=== PATIENT | female | born 1935 | race Caucasian/White ===

== ENCOUNTER 2024-05-03 20:09 | Inpatient (IN) ==
--- NOTE | 2024-05-03 20:39 | Emergency Department Note ---
Impression & Plan Fall, Acute CVA (cerebrovascular accident), HTN (hypertension) ED Provider Note Provider: Carlos Edmonds MD CHIEF COMPLAINT: Fall, fatigue HISTORY OF PRESENT ILLNESS: Patient is a 88-year-old female otherwise healthy for her and daughter's report presenting here today after slide to the floor yesterday while putting on a sock. No significant trauma or head injury. Today staff reported the patient may be slipped and fell in the shower. He had little bit of neck and jaw pain this morning but took some aspirin. Does not only take medications or blood thinners. Patient denies any pain complaint. States she has not any headache, dizziness, visual change, neck pain, chest pain, shortness of breath, or abdominal pain. Was ambulatory in the car with family to come here and they do report however that she seemed maybe a little more fatigued last day or 2. Did have a full day on Thursday where she was out with family looking at close. Patient herself denies any confusion and family states she is at her baseline. Did have a recent checkup with the facility physician with good remarks reported by family. Has been noted to be slightly hypertensive recently. PAST MEDICAL HISTORY: As noted above MEDICATIONS: None SOCIAL HISTORY: Lives at personal care PHYSICAL EXAM: GENERAL: alert and oriented in no acute distress on stretcher Head: normocephalic and atraumatic EYES: No injection, discharge or icterus. PERRL, EOMI. NECK: Trachea midline. Supple without midline cervical tenderness. No crepitus or neck swelling appreciable. ENT: Mucous membranes pink and moist. LUNGS: Airway patent. No retractions. Breath sounds clear with good air entry bilaterally. HEART: Regular rate and rhythm. No chest wall tenderness ABDOMEN: Soft and non-tender, without guarding or rebound. BACK: No midline tenderness of the entire spine, no SI joint tenderness. No bilateral flank tenderness. SKIN: Acyanotic, warm, dry, without rashes EXTREMITIES: Without swelling, tenderness or deformity good range of motion of the extremities without evidence of compartment syndrome in the arms or legs NEUROLOGICAL: No focal deficits. Little bit circumferential with speech but no clear aphasia. No facial droop or slurred speech. Normal strength and tone in the extremities. Sensation to gross touch normal. Ambulatory. EK bpm sinus rhythm with sinus arrhythmia. Little bit of baseline artifact. No clear acute ST segment elevation or depression with QTc of 418. CONTINUOUS CARDIAC MONITORING: was ordered and showed a heart rate of 60s to 70s bpm in sinus rhythm with sinus arrhythmia GCS 15. Patient's laboratory studies and imaging reviewed. Differential includes traumatic injury, infection, dehydration, metabolic abnormality, hypo/hyperglycemia, electrolyte disturbance, anemia, hypoxia, cardiac sources, intracerebral event, toxicologic, neurologic, as well as other pathologies. IMPRESSION/MEDICAL DECISION MAKING: Patient yesterday very small slip to the floor and possibly a slight fall in the shower although patient states it was minimal. Not on high risk anticoagulant. Did instantly have an aspirin for bit of jaw pain earlier today but denies any jaw pain now. States she feels fine. Family states she seems maybe just a little more fatigued than normal but did have a full day on Thursday. Given this basic blood was obtained with her consent as well as a CT of the head and cervical spine. Chest x-ray obtained. EKG obtained. Does not seem to be an extremis and not hypoxic here. Is noted be hypertensive. Not on medications. Do not see evidence of a second traumatic injury, compartment syndrome, or injury to the extremities. Do not believe we need full trauma cunningham scans. Blood work without significant leukocytosis or anemia. No sick electrolyte advised as acute renal dysfunction. Normal CK. Normal LFTs. EKG without significant abnormality. Urinalysis negative for signs of infection. Chest x- ray completed as well as CT of the head and cervical spine. Chest x-ray per my review and interpretation without evidence of pneumonia, pneumothorax, or free air. Some cardiomegaly noted. Does not seem to sustained a significant injury traumatically. CT does question occipital infarct. No history of stroke reported. Does continue to be somewhat hypertensive here and does not a history of this. Unclear that this is new and given the CT findings likely more subacute, but discussed with patient and family this finding. Discussed coming in for further stroke workup and to monitor the hypertension. Took 2 aspirin earlier this evening so will not give additional at this time. Will complete CT angiograms of the head and neck but low suspicion for LVO at this time. Discussed with the hospitalist team. DIAGNOSIS: Fall, subacute CVA, hypertension DISPOSITION: Further evaluation by the hospitalist team. Past Med/Surg History Problem List (Updated 05/03/24 @ 23:30 by Carlos T Kendal, M.D.) HTN (hypertension) (Acute) Acute CVA (cerebrovascular accident) (Acute) Fall (Acute) Social History Smoking Status: Never smoker Feels Safe at Home: Yes Allergies Allergies Allergy/AdvReac Type Severity Reaction Status Date / Time amoxicillin Allergy Unknown ON [place] Verified 05/03/24 20:54 [place] [facility] L[facility] Sulfa (Sulfonamide Allergy Unknown ON [place] Verified 05/03/24 20:54 Antibiotics) [facility] MED LIST Home Meds Home Medications Medication Instructions Recorded Confirmed acetaminophen 325 mg tablet 650 mg PO Q4H PRN PAIN/FEVER 05/03/24 05/03/24 (Tylenol) ascorbic acid (vitamin C) 500 mg 500 mg PO DAILY 05/03/24 05/03/24 tablet (Vitamin C) aspirin 325 mg tablet 650 mg PO Q6H PRN Pain 05/03/24 05/03/24 cholecalciferol (vitamin D3) 50 50 mcg PO DAILY 05/03/24 05/03/24 mcg (2,000 unit) capsule (Vitamin D3) guaifenesin 600 mg tablet, 600 - 1,200 mg PO Q12H PRN 05/03/24 05/03/24 extended release 12 hr (Mucinex) Congestion herbal drugs 2 tab PO BID 05/03/24 05/03/24 multivitamin 3 tab PO BID 05/03/24 05/03/24 nystatin 100,000 unit/gram topical 1 applic topical QID PRN NEEDED 05/03/24 05/03/24 powder Results & Data (ED) Vital Signs Vital Signs - 24 hr 05/03/24 20:11 05/03/24 20:48 05/03/24 20:53 Temperature 36.5 C Temperature Source Oral Pulse Rate 73 63 Pulse Rate [Apical] 78 Respiratory Rate 18 16 Respiratory Effort / Characteristics Non-Labored Spontaneous Respiratory Depth Normal Respiratory Pattern Regular Blood Pressure 196/117 H Blood Pressure [Left Arm] 184/105 H Blood Pressure Mean 143 Blood Pressure Mean [Left Arm] 131 Pulse Oximetry 94 94 Oxygen Delivery Method Room Air Room Air Sepsis Recent Fever Within 48 Hours No Sepsis New/Unexplained Change in Mental Status No Sepsis Action Taken by Nursing No Action Required 05/03/24 21:36 05/03/24 22:00 05/03/24 22:30 Temperature Temperature Source Pulse Rate 70 68 67 Pulse Rate [Apical] Respiratory Rate 16 19 15 Respiratory Effort / Characteristics Respiratory Depth Respiratory Pattern Blood Pressure 174/83 H 158/81 H 157/83 H Blood Pressure [Left Arm] Blood Pressure Mean 113 106 107 Blood Pressure Mean [Left Arm] Pulse Oximetry 98 97 97 Oxygen Delivery Method Room Air Room Air Room Air Sepsis Recent Fever Within 48 Hours Sepsis New/Unexplained Change in Mental Status Sepsis Action Taken by Nursing 05/03/24 23:06 Temperature Temperature Source Pulse Rate 64 Pulse Rate [Apical] Respiratory Rate 16 Respiratory Effort / Characteristics Respiratory Depth Respiratory Pattern Blood Pressure 153/97 H Blood Pressure [Left Arm] Blood Pressure Mean 115 Blood Pressure Mean [Left Arm] Pulse Oximetry 97 Oxygen Delivery Method Room Air Sepsis Recent Fever Within 48 Hours Sepsis New/Unexplained Change in Mental Status Sepsis Action Taken by Nursing Laboratory Data 05/03/24 20:50 05/03/24 20:50 Lab Results 05/03/24 05/03/24 Range/Units 20:50 22:15 WBC 6.83 (4.8-10.8) K/ul RBC 4.72 (4.20-5.40) M/uL Hgb 13.7 (12.0-16.0) g/dl Hct 40.6 (37.0-47.0) % MCV 86.0 (80.0-100.0) fL MCH 29.0 (25.0-34.0) pg MCHC 33.7 (32.0-36.0) g/dL RDW Std Deviation 41.6 (36.4-46.3) fL RDW Coeff of Carmen 13.2 (11.5-14.5) % Plt Count 146 (130-400) K/uL MPV 12.1 (9.4-12.4) fL Immature Gran % (Auto) 0.3 % Neut % (Auto) 78.1 % Lymph % (Auto) 9.8 % [place] % (Auto) 11.4 % Eos % (Auto) 0.3 % Baso % (Auto) 0.1 % Neut # (Auto) 5.33 (1.40-6.50) K/uL Lymph # (Auto) 0.67 L (1.20-3.40) K/uL [place] # (Auto) 0.78 H (0.11-0.59) K/uL Eos # (Auto) 0.02 (0.00-0.50) K/uL Baso # (Auto) 0.01 (0.00-0.20) K/uL Immature Gran # (Auto) 0.02 (0.01-0.20) K/uL Sodium 136 (136-145) mmol/L Potassium 3.7 (3.5-5.1) mmol/L Chloride 105 (98-107) mmol/L Carbon Dioxide 23 (21-32) mmol/L Anion Gap 8 (3-11) BUN 25 H (6-23) mg/dl Creatinine 0.92 (0.6-1.2) mg/dl Est Cr Clr Drug Dosing 40.7 ml/min eGFR 59.52 BUN/Creatinine Ratio 27.2 H (10-20) Glucose 104 H (70-99(Fasting)) mg/dl Calcium 8.6 (8.6-10.3) mg/dl Total Bilirubin 0.5 (0.2-1.0) mg/dl AST 17 (13-39) U/L ALT 9 (7-52) U/L Alkaline Phosphatase 70 (34-104) U/L Total Creatine Kinase 116 (26-192) U/L Total Protein 6.6 (6.0-8.3) gm/dl Albumin 3.8 (3.4-5.0) gm/dl Globulin 2.8 (2.5-4.0) gm/dl Albumin/Globulin Ratio 1.4 (0.9-2) Urine Color Yellow Urine Appearance Clear (Clear) Urine pH 6.0 (4.5-7.5) Ur Specific [place] 1.003 (1.000-1.030) Urine Protein Negative (Negative) Urine Glucose (UA) Negative (Negative) Urine Ketones Negative (Negative) Urine Blood Negative (Negative) Urine Nitrite Negative (Negative) Urine Bilirubin Negative (Negative) Urine Urobilinogen Negative (Negative) Ur Leukocyte Esterase Negative (Negative) Administered Medications Discontinued Medications Ioversol (Optiray 320 125ml) 125 ml IV ONCE ONE Stop: 05/04/24 00:01 Last Admin: 05/04/24 00:00 Dose: 118 ml Documented By: SILAS Imaging Data Radiologist's Impression: Cervical Spine CT 05/03/24 20:34 Exam(s): CT C SPINE EXAM: CT Cervical Spine Without Intravenous Contrast CLINICAL HISTORY: fall. TECHNIQUE: Axial computed tomography images of the cervical spine without intravenous contrast. CTDI is 25.19 mGy and DLP is 494.61 mGy-cm. Automated exposure control was utilized for the study. A dose lowering technique was utilized adhering to the principles of ALARA. COMPARISON: No relevant prior studies available. FINDINGS: Vertebrae: The vertebral bodies are intact without acute osseous traumatic injury. 3 mm anterolisthesis involving C7 on T1. 1-2 mm anterolisthesis of T1 on T2. The facet joints are well aligned without subluxation or dislocation. The pedicles, transverse processes and spinous processes are intact. Diffuse facet hypertrophic arthropathy noted bilaterally. Incidental ankylosis of the bilateral facets from C4- C6. Discs/spinal canal/neural foramina: Degenerative disc ankylosis at C4- 5 and C5-6. Multilevel disc spondylosis with narrowing and marginal hypertrophic osteophyte changes. No significant osseous central canal stenosis. Soft tissues: Unremarkable. Lung apices: The included lung apices demonstrate no evidence for acute traumatic injury. IMPRESSION: No acute osseous traumatic injury or significant abnormal alignment involving the cervical spine. Incidental degenerative changes with ankylosis from C4-C6 anteriorly and posteriorly. Electronically signed by: Bay Sargent MD 05/03/24 23:19 PM Chest X-Ray 05/03/24 20:34 Exam(s): XR CXR 1 VIEW EXAM: XR Chest, 1 View CLINICAL HISTORY: fall. TECHNIQUE: Frontal view of the chest. COMPARISON: No relevant prior studies available. FINDINGS: Lungs: Shallow inspiration. No definite pulmonary contusive injury or focal consolidation. Pleural space: Unremarkable. No pneumothorax. No large pleural effusion. Heart: The cardiac silhouette is presumed accentuated by portable technique and poor inspiratory effort. Mediastinum: No definite evidence for mediastinal widening, accounting for obliquity. No tracheal deviation. Bones/joints: No definite acute osseous abnormality, accounting for limitations. IMPRESSION: Accounting for limitations with obliquity, there is no definite evidence for significant acute traumatic injury to the chest/thorax. Electronically signed by: Bay Sargent MD 05/03/24 23:[address] 05/03/24 20:34 CR Exam(s): CT HEAD Without Contrast EXAM: CT Head Without Intravenous Contrast CLINICAL HISTORY: fall. TECHNIQUE: Axial computed tomography images of the head/brain without intravenous contrast. CTDI is 55.17 mGy and DLP is 899.15 mGy-cm. Automated exposure control was utilized for the study. A dose lowering technique was utilized adhering to the principles of ALARA. COMPARISON: No relevant prior studies available. FINDINGS: Brain: No intracranial hemorrhage. No significant mass-effect. There is a subtle wedge-shaped hypodense area involving the left parieto- occipital region with loss of the miller-white matter differentiation. Underlying parenchymal involutional changes with prominence of the cerebral sulci and sylvian ureters. Mild periventricular deep white matter hypodense changes noted. Ventricles: Unremarkable. No ventriculomegaly. Bones/joints: Unremarkable. No acute fracture. Soft tissues: No significant overlying acute traumatic soft tissue abnormality. No radiopaque foreign body. Sinuses: Unremarkable as visualized. No acute sinusitis. Mastoid air cells: Unremarkable as visualized. No mastoid effusion. IMPRESSION: There is a subtle wedge-shaped hypodense area involving the left parieto-occipital region with loss of the miller-white matter differentiation. An evolving ischemic process is not excluded. MRI with diffusion may provide additional information at this region, as clinically appropriate. No significant mass-effect or midline shift. No acute intracranial hemorrhage or skull fracture. Communications: Verify Receipt Electronically signed by: Bay Sargent MD 05/03/24 23:13 PM Discharge Plan Visit Data Chief Complaint: Head Injury, Minor Stated Complaint: POSSIBLE FALL, HIT HEAD ED Provider: Carlos Edmonds Discharge Problem: Fall, Acute CVA (cerebrovascular accident), HTN (hypertension) Patient Disposition: Admitted As Inpatient Forms Stand Alone Forms: [facility] Prescriptions Prescriptions: No Action multivitamin Tablet 3 tab PO BID acetaminophen [Tylenol] 325 mg Tablet 650 mg PO Q4H PRN (Reason: PAIN/FEVER) aspirin 325 mg Tablet 650 mg PO Q6H MDD 12 TABLETS/24 HOURS PRN (Reason: Pain) ascorbic acid (vitamin C) [Vitamin C] 500 mg Tablet 500 mg PO DAILY nystatin 100,000 unit/gram Powder 1 applic TOPICAL QID PRN (Reason: NEEDED) Herbal Laxative Tablet 2 tab PO BID cholecalciferol (vitamin D3) [Vitamin D3] 50 mcg (2,000 unit) Capsule 50 mcg PO DAILY guaifenesin [Mucinex] 600 mg Tablet Extended Release 12hr 600 - 1,200 mg PO Q12H PRN (Reason: Congestion) [facility]errals [facility] Discharge Problem: Fall Qualifiers: Encounter type: initial encounter Qualified Code(s): W19.XXXA - Unspecified fall, initial encounter
[2024-05-03 21:26] LABS: Albumin Globulin Ratio 1.4 (0.9-2); Albumin Level 3.8 gm/dl (3.4-5.0); BUN Creatinine Ratio 27.2 (10-20); Bilirubin,Total 0.5 mg/dl (0.2-1.0); Calcium 8.6 mg/dl (8.6-10.3); Creatinine Clr Calc Pharmacy 40.7 ml/min; Globulin 2.8 gm/dl (2.5-4.0); Potassium 3.7 mmol/L (3.5-5.1); Total Protein 6.6 gm/dl (6.0-8.3)
[2024-05-03 21:40] LABS: Basophils # (auto) 0.01 K/uL (0.00-0.20); Basophils % (auto) 0.1 %; Eosinophils # (auto) 0.02 K/uL (0.00-0.50); Eosinophils % (auto) 0.3 %; Hematocrit (blood only) 40.6 % (37.0-47.0); Hemoglobin 13.7 g/dl (12.0-16.0); Immature Granulocytes # (auto) 0.02 K/uL (0.01-0.20); Immature Granulocytes % (auto) 0.3 %; Lymphocytes # (auto) 0.67 K/uL (1.20-3.40); Lymphocytes % (auto) 9.8 %; Mean Corpuscular Hgb Conc 33.7 g/dL (32.0-36.0); Mean Platelet Volume 12.1 fL (9.4-12.4); Monocytes # (auto) 0.78 K/uL (0.11-0.59); Monocytes % (auto) 11.4 %; Neutrophils # (auto) 5.33 K/uL (1.40-6.50); Neutrophils % (auto) 78.1 %; Platelet Count 146 K/uL (130-400); RDW Coefficient of Variation 13.2 % (11.5-14.5); RDW Standard Deviation 41.6 fL (36.4-46.3); Red Blood Count 4.72 M/uL (4.20-5.40); White Blood Count 6.83 K/ul (4.8-10.8)
[2024-05-03 22:24] LABS: Appearance Urine Clear (Clear); Bilirubin Urine Negative (Negative); Blood Urine Negative (Negative); Color Urine Yellow; Glucose Urine UA Negative (Negative); Ketones Urine Negative (Negative); Leukocyte Esterase Urine Negative (Negative); Nitrite Urine Negative (Negative); Protein Urine Negative (Negative); Specific Gravity Urine 1.003 (1.000-1.030); Urobilinogen Urine Negative (Negative)
--- NOTE | 2024-05-03 23:14 | CT Scan Report ---
Exam(s): CT HEAD Without Contrast EXAM: CT Head Without Intravenous Contrast CLINICAL HISTORY: fall. TECHNIQUE: Axial computed tomography images of the head/brain without intravenous contrast. CTDI is 55.17 mGy and DLP is 899.15 mGy-cm. Automated exposure control was utilized for the study. A dose lowering technique was utilized adhering to the principles of ALARA. COMPARISON: No relevant prior studies available. FINDINGS: Brain: No intracranial hemorrhage. No significant mass-effect. There is a subtle wedge-shaped hypodense area involving the left parieto- occipital region with loss of the miller-white matter differentiation. Underlying parenchymal involutional changes with prominence of the cerebral sulci and sylvian ureters. Mild periventricular deep white matter hypodense changes noted. Ventricles: Unremarkable. No ventriculomegaly. Bones/joints: Unremarkable. No acute fracture. Soft tissues: No significant overlying acute traumatic soft tissue abnormality. No radiopaque foreign body. Sinuses: Unremarkable as visualized. No acute sinusitis. Mastoid air cells: Unremarkable as visualized. No mastoid effusion. IMPRESSION: There is a subtle wedge-shaped hypodense area involving the left parieto-occipital region with loss of the miller-white matter differentiation. An evolving ischemic process is not excluded. MRI with diffusion may provide additional information at this region, as clinically appropriate. No significant mass-effect or midline shift. No acute intracranial hemorrhage or skull fracture. Communications: Verify Receipt Electronically signed by: Bay Sargent MD 05/03/24 23:13 PM
--- NOTE | 2024-05-03 23:20 | CT Scan Report ---
Exam(s): CT C SPINE EXAM: CT Cervical Spine Without Intravenous Contrast CLINICAL HISTORY: fall. TECHNIQUE: Axial computed tomography images of the cervical spine without intravenous contrast. CTDI is 25.19 mGy and DLP is 494.61 mGy-cm. Automated exposure control was utilized for the study. A dose lowering technique was utilized adhering to the principles of ALARA. COMPARISON: No relevant prior studies available. FINDINGS: Vertebrae: The vertebral bodies are intact without acute osseous traumatic injury. 3 mm anterolisthesis involving C7 on T1. 1-2 mm anterolisthesis of T1 on T2. The facet joints are well aligned without subluxation or dislocation. The pedicles, transverse processes and spinous processes are intact. Diffuse facet hypertrophic arthropathy noted bilaterally. Incidental ankylosis of the bilateral facets from C4- C6. Discs/spinal canal/neural foramina: Degenerative disc ankylosis at C4- 5 and C5-6. Multilevel disc spondylosis with narrowing and marginal hypertrophic osteophyte changes. No significant osseous central canal stenosis. Soft tissues: Unremarkable. Lung apices: The included lung apices demonstrate no evidence for acute traumatic injury. IMPRESSION: No acute osseous traumatic injury or significant abnormal alignment involving the cervical spine. Incidental degenerative changes with ankylosis from C4-C6 anteriorly and posteriorly. Electronically signed by: Bay Sargent MD 05/03/24 23:19 PM
--- NOTE | 2024-05-03 23:23 | XRay Report ---
Exam(s): XR CXR 1 VIEW EXAM: XR Chest, 1 View CLINICAL HISTORY: fall. TECHNIQUE: Frontal view of the chest. COMPARISON: No relevant prior studies available. FINDINGS: Lungs: Shallow inspiration. No definite pulmonary contusive injury or focal consolidation. Pleural space: Unremarkable. No pneumothorax. No large pleural effusion. Heart: The cardiac silhouette is presumed accentuated by portable technique and poor inspiratory effort. Mediastinum: No definite evidence for mediastinal widening, accounting for obliquity. No tracheal deviation. Bones/joints: No definite acute osseous abnormality, accounting for limitations. IMPRESSION: Accounting for limitations with obliquity, there is no definite evidence for significant acute traumatic injury to the chest/thorax. Electronically signed by: Bay Sargent MD 05/03/24 23:21 PM
[2024-05-04] MEDS: OPTIRAY 320 125ml IV ONE
--- NOTE | 2024-05-04 00:36 | CT Scan Report ---
EXAM: CT angio neck with con CLINICAL HISTORY: weak, cva on CTH TECHNIQUE: Contrast enhanced thin slice CT angiography scan of the carotid vessels was performed with intravenous contrast. Angiographic images were processed, 3D MIP images were acquired for interpretation.Contiguous axial images were obtained. Reformatted coronal and sagittal images were also reviewed. If IV contrast material had not been administered, the likelihood of detecting abnormalities relevant to the patient's condition would have been substantially decreased. CT scan was performed according to ALARA (as low as reasonably achievable). COMPARISON: none FINDINGS: Atherosclerotic wall calcification of bilateral carotid bulbs. No significant luminal narrowing. Included great vessels of the aortic arch are grossly unremarkable. Common carotid artery, carotid Bulb, internal carotid artery , and origin of the external carotid artery are well opacified. Vertebral arteries are well opacified. Jugular veins are well opacified. Included lung apices are grossly unremarkable. Thyroid gland appears unremarkable. IMPRESSION: 1. Atherosclerotic wall calcification of bilateral carotid bulbs. No significant luminal narrowing. 2. No evidence of significant stenosis or aneurysm. No evidence of dissection. Electronically signed by Jamison Hilton 05-04-2024 12:36 AM
--- NOTE | 2024-05-04 00:42 | CT Scan Report ---
EXAM: CT angio head w con CLINICAL HISTORY: weak, cva on CTH TECHNIQUE: Contrast enhanced thin slice CT angiography scan of the cerebral vessels was performed with intravenous contrast. Angiographic images were processed, 3D MIP images were acquired for interpretation. Contiguous axial images were obtained. Reformatted coronal and sagittal images were also reviewed. If IV contrast material had not been administered, the likelihood of detecting abnormalities relevant to the patient's condition would have been substantially decreased. CT scan was performed according to ALARA (as low as reasonably achievable). COMPARISON: none FINDINGS: Bilateral internal carotid arteries show normal course, calibre and opacification in the canalicular and cavernous part. Their division into the anterior cerebral artery and middle cerebral artery is defined. A1, A2 and M1, M2 segments are normal on both the sides. Bilateral vertebral arteries are seen to unite the form the basilar artery in a normal fashion. Basilar artery shows normal course, caliber and opacification. Its division into the posterior cerebral arteries is defined. Bilateral P1 and P2 segments are normal. Visualized venous structures show normal opacification. No evidence of intracranial aneurysm or AV malformation is seen. IMPRESSION: 1.No evidence of stenosis or aneurysm. No evidence of dissection. Electronically signed by Jamison Hilton 05-04-2024 12:41 AM
--- NOTE | 2024-05-04 02:16 | History & Physical Report ---
Date of Service May 04, 2024 Assessment & Plan (1) Fall: Plan: 88-year-old female with no significant past medical history currently living [facility] was brought in because of falls. Patient seem to slipped from the bed last night. Today around 7 PM she fell in the shower and was brought to the hospital. CT scan showed subtle wedge-shaped hypodense area involving the left parieto-occipital region and evolving ischemic process not excluded. CTA head and neck no acute findings. Patient is very hard of hearing. Daughter and son-in-law are in the room who helped with H&P. Family says patient is very hard of hearing and also has some difficulty understanding. They are not sure whether she has dementia. Today seems she also complained neck and jaw pain and took some aspirin. Seems patient was ambulating in the car with the family to come here. Patient denies any headache. No runny nose or sore throat or cough. Denies chest pain. No difficulty swallowing. No shortness of breath. No abdominal pain. She is on depends because she micturates a lot. Normal bowel movements. Hemodynamics are okay. As per previous [facility] notes patient was on hydrochlorothiazide but currently seems no longer on it. Fall Once last night and today in shower at 7 PM Patient is very hard of hearing CT scan possible CVA. CTA head and neck no acute findings Patient already received aspirin today for neck and jaw pain Will place on aspirin 81 mg p.o. daily from a.m. Will do stroke workup with MRI scan, echo, neurochecks, PT OT Follow lipid profile and HbA1c levels Gentle fluids Permissive htn for now Neuroconsult in a.m. 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 History of Present Illness Chief Complaint: Status post fall, possible CVA Primary Care Provider: [facility] 88-year-old female with no significant past medical history currently living at [facility] was brought in because of falls. Patient seem to slipped from the bed last night. Today around 7 PM she fell in the shower and was brought to the hospital. CT scan showed subtle wedge-shaped hypodense area involving the left parieto-occipital region and evolving ischemic process not excluded. CTA head and neck no acute findings. Patient is very hard of hearing. Daughter and son-in-law are in the room who helped with H&P. Family says patient is very hard of hearing and also has some difficulty understanding. They are not sure whether she has dementia. Today seems she also complained neck and jaw pain and took some aspirin. Seems patient was ambulating in the car with the family to come here. Patient denies any headache. No runny nose or sore throat or cough. Denies chest pain. No difficulty swallowing. No shortness of breath. No abdominal pain. She is on depends because she micturates a lot. Normal bowel movements. Hemodynamics are okay. As per previous epic notes patient was on hydrochlorothiazide but currently seems no longer on it. Past medical history. As mentioned above. Past surgical history. Dilatation curettage. Tonsillectomy. Social history. No smoking. No alcohol. No drug use as per records. Family history. Mother had Parkinson's per records. Father had diabetes and COPD per records. Allergies Allergy/AdvReac Type Severity Reaction Status Date / Time amoxicillin Allergy Unknown ON EGEGIK Verified 05/03/24 20:54 [facility] L[facility] Sulfa (Sulfonamide Allergy Unknown ON EGEGIK Verified 05/03/24 20:54 Antibiotics) [facility] MED LIST Home Medications Medication Instructions Recorded Confirmed Type acetaminophen 325 mg tablet 650 mg PO Q4H PRN PAIN/FEVER 05/03/24 05/03/24 History (Tylenol) ascorbic acid (vitamin C) 500 mg 500 mg PO DAILY 05/03/24 05/03/24 History tablet (Vitamin C) aspirin 325 mg tablet 650 mg PO Q6H PRN Pain 05/03/24 05/03/24 History cholecalciferol (vitamin D3) 50 50 mcg PO DAILY 05/03/24 05/03/24 History mcg (2,000 unit) capsule (Vitamin D3) guaifenesin 600 mg tablet, 600 - 1,200 mg PO Q12H PRN 05/03/24 05/03/24 History extended release 12 hr (Mucinex) Congestion herbal drugs 2 tab PO BID 05/03/24 05/03/24 History multivitamin 3 tab PO BID 05/03/24 05/03/24 History nystatin 100,000 unit/gram topical 1 applic topical QID PRN NEEDED 05/03/24 05/03/24 History powder Past Med/Surg History Problem List (Updated 05/03/24 @ 23:30 by Carlos Edmonds M.D.) HTN (hypertension) (Acute) Acute CVA (cerebrovascular accident) (Acute) Fall (Acute) Social History Smoking Status: Unknown if ever smoked Hx Alcohol Use: No Hx Substance Use: No Preferred Language: Uzbek Communication Ability: Effective Mobile Ui Designer Required: No Current Living Situation: Personal Care Facility Feels Safe at Home: Yes Assistive Devices: Glasses Review of Systems Review of Systems: Other As per HPI. Very hard of hearing. Physical Exam Physical Exam: General-Not in distress. Head- atraumatic Eyes- PERRL, EOMI. ENT- oropharynx clear Neck- supple, no JVD. Lungs- clear to auscultation no wheezing or crackles Heart- regular rate and rhythm; no murmur, no gallop. Abdomen- normal bowel sounds, soft, nontender, no distension. Extremities- no pretibial edema, no erythema seen. Neuro- alert, and awake. Very hard of hearing. PERRL, EOMI; no facial palsy; no dysarthria; motor 3-4/5 bilaterally; co ordination of movements ok. Somewhat difficult to make her understand to perform neuro exam Results & Data Results & Data Vital Signs (Past 12 Hours) Vital Signs Temp Pulse Pulse Resp BP BP Pulse Ox 05/04/24 00:40 57 L 05/03/24 23:36 64 15 155/98 H 97 05/03/24 23:06 64 16 153/97 H 97 05/03/24 22:30 67 15 157/83 H 97 05/03/24 22:00 68 19 158/81 H 97 05/03/24 21:36 70 16 174/83 H 98 05/03/24 20:53 78 16 184/105 H 94 05/03/24 20:48 63 05/03/24 20:11 36.5 C 73 18 196/117 H 94 O2 Del Method 05/04/24 00:40 05/03/24 23:36 Room Air 05/03/24 23:06 Room Air 05/03/24 22:30 Room Air 05/03/24 22:00 Room Air 05/03/24 21:36 Room Air 05/03/24 20:53 Room Air 05/03/24 20:48 05/03/24 20:11 Room Air Diagnostic Findings Laboratory Results WBC 6.83 K/ul (4.8-10.8) 05/03/24 20:50 RBC 4.72 M/uL (4.20-5.40) 05/03/24 20:50 Hgb 13.7 g/dl (12.0-16.0) 05/03/24 20:50 Hct 40.6 % (37.0-47.0) 05/03/24 20:50 MCV 86.0 fL (80.0-100.0) 05/03/24 20:50 MCH 29.0 pg (25.0-34.0) 05/03/24 20:50 MCHC 33.7 g/dL (32.0-36.0) 05/03/24 20:50 RDW Std Deviation 41.6 fL (36.4-46.3) 05/03/24 20:50 RDW Coeff of Carmen 13.2 % (11.5-14.5) 05/03/24 20:50 Plt Count 146 K/uL (130-400) 05/03/24 20:50 MPV 12.1 fL (9.4-12.4) 05/03/24 20:50 Immature Gran % (Auto) 0.3 % 05/03/24 20:50 Neut % (Auto) 78.1 % 05/03/24 20:50 Lymph % (Auto) 9.8 % 05/03/24 20:50 Gage % (Auto) 11.4 % 05/03/24 20:50 Eos % (Auto) 0.3 % 05/03/24 20:50 Baso % (Auto) 0.1 % 05/03/24 20:50 Neut # (Auto) 5.33 K/uL (1.40-6.50) 05/03/24 20:50 Lymph # (Auto) 0.67 K/uL (1.20-3.40) L 05/03/24 20:50 Gage # (Auto) 0.78 K/uL (0.11-0.59) H 05/03/24 20:50 Eos # (Auto) 0.02 K/uL (0.00-0.50) 05/03/24 20:50 Baso # (Auto) 0.01 K/uL (0.00-0.20) 05/03/24 20:50 Immature Gran # (Auto) 0.02 K/uL (0.01-0.20) 05/03/24 20:50 Sodium 136 mmol/L (136-145) 05/03/24 20:50 Potassium 3.7 mmol/L (3.5-5.1) 05/03/24 20:50 Chloride 105 mmol/L (98-107) 05/03/24 20:50 Carbon Dioxide 23 mmol/L (21-32) 05/03/24 20:50 Anion Gap 8 (3-11) 05/03/24 20:50 BUN 25 mg/dl (6-23) H 05/03/24 20:50 Creatinine 0.92 mg/dl (0.6-1.2) 05/03/24 20:50 Est Cr Clr Drug Dosing 40.7 ml/min 05/03/24 20:50 eGFR 59.52 05/03/24 20:50 BUN/Creatinine Ratio 27.2 (10-20) H 05/03/24 20:50 Glucose 104 mg/dl (70-99(Fasting)) H 05/03/24 20:50 Calcium 8.6 mg/dl (8.6-10.3) 05/03/24 20:50 Total Bilirubin 0.5 mg/dl (0.2-1.0) 05/03/24 20:50 AST 17 U/L (13-39) 05/03/24 20:50 ALT 9 U/L (7-52) 05/03/24 20:50 Alkaline Phosphatase 70 U/L (34-104) 05/03/24 20:50 Total Creatine Kinase 116 U/L (26-192) 05/03/24 20:50 Total Protein 6.6 gm/dl (6.0-8.3) 05/03/24 20:50 Albumin 3.8 gm/dl (3.4-5.0) 05/03/24 20:50 Globulin 2.8 gm/dl (2.5-4.0) 05/03/24 20:50 Albumin/Globulin Ratio 1.4 (0.9-2) 05/03/24 20:50 Urine Color Yellow 05/03/24 22:15 Urine Appearance Clear (Clear) 05/03/24 22:15 Urine pH 6.0 (4.5-7.5) 05/03/24 22:15 Ur Specific Bigfoot 1.003 (1.000-1.030) 05/03/24 22:15 Urine Protein Negative (Negative) 05/03/24 22:15 Urine Glucose (UA) Negative (Negative) 05/03/24 22:15 Urine Ketones Negative (Negative) 05/03/24 22:15 Urine Blood Negative (Negative) 05/03/24 22:15 Urine Nitrite Negative (Negative) 05/03/24 22:15 Urine Bilirubin Negative (Negative) 05/03/24 22:15 Urine Urobilinogen Negative (Negative) 05/03/24 22:15 Ur Leukocyte Esterase Negative (Negative) 05/03/24 22:[address] 05/03/24 20:34 Exam(s): CT C SPINE EXAM: CT Cervical Spine Without Intravenous Contrast CLINICAL HISTORY: fall. TECHNIQUE: Axial computed tomography images of the cervical spine without intravenous contrast. CTDI is 25.19 mGy and DLP is 494.61 mGy-cm. Automated exposure control was utilized for the study. A dose lowering technique was utilized adhering to the principles of ALARA. COMPARISON: No relevant prior studies available. FINDINGS: Vertebrae: The vertebral bodies are intact without acute osseous traumatic injury. 3 mm anterolisthesis involving C7 on T1. 1-2 mm anterolisthesis of T1 on T2. The facet joints are well aligned without subluxation or dislocation. The pedicles, transverse processes and spinous processes are intact. Diffuse facet hypertrophic arthropathy noted bilaterally. Incidental ankylosis of the bilateral facets from C4- C6. Discs/spinal canal/neural foramina: Degenerative disc ankylosis at C4- 5 and C5-6. Multilevel disc spondylosis with narrowing and marginal hypertrophic osteophyte changes. No significant osseous central canal stenosis. Soft tissues: Unremarkable. Lung apices: The included lung apices demonstrate no evidence for acute traumatic injury. IMPRESSION: No acute osseous traumatic injury or significant abnormal alignment involving the cervical spine. Incidental degenerative changes with ankylosis from C4-C6 anteriorly and posteriorly. Electronically signed by: Bay Sargent MD 05/03/24 23:19 PM Chest X-Ray 05/03/24 20:34 Exam(s): XR CXR 1 VIEW EXAM: XR Chest, 1 View CLINICAL HISTORY: fall. TECHNIQUE: Frontal view of the chest. COMPARISON: No relevant prior studies available. FINDINGS: Lungs: Shallow inspiration. No definite pulmonary contusive injury or focal consolidation. Pleural space: Unremarkable. No pneumothorax. No large pleural effusion. Heart: The cardiac silhouette is presumed accentuated by portable technique and poor inspiratory effort. Mediastinum: No definite evidence for mediastinal widening, accounting for obliquity. No tracheal deviation. Bones/joints: No definite acute osseous abnormality, accounting for limitations. IMPRESSION: Accounting for limitations with obliquity, there is no definite evidence for significant acute traumatic injury to the chest/thorax. Electronically signed by: Bay Sargent MD 05/03/24 23:[address] 05/03/24 20:34 CR Exam(s): CT HEAD Without Contrast EXAM: CT Head Without Intravenous Contrast CLINICAL HISTORY: fall. TECHNIQUE: Axial computed tomography images of the head/brain without intravenous contrast. CTDI is 55.17 mGy and DLP is 899.15 mGy-cm. Automated exposure control was utilized for the study. A dose lowering technique was utilized adhering to the principles of ALARA. COMPARISON: No relevant prior studies available. FINDINGS: Brain: No intracranial hemorrhage. No significant mass-effect. There is a subtle wedge-shaped hypodense area involving the left parieto- occipital region with loss of the miller-white matter differentiation. Underlying parenchymal involutional changes with prominence of the cerebral sulci and sylvian ureters. Mild periventricular deep white matter hypodense changes noted. Ventricles: Unremarkable. No ventriculomegaly. Bones/joints: Unremarkable. No acute fracture. Soft tissues: No significant overlying acute traumatic soft tissue abnormality. No radiopaque foreign body. Sinuses: Unremarkable as visualized. No acute sinusitis. Mastoid air cells: Unremarkable as visualized. No mastoid effusion. IMPRESSION: There is a subtle wedge-shaped hypodense area involving the left parieto-occipital region with loss of the miller-white matter differentiation. An evolving ischemic process is not excluded. MRI with diffusion may provide additional information at this region, as clinically appropriate. No significant mass-effect or midline shift. No acute intracranial hemorrhage or skull fracture. Communications: Verify Receipt Electronically signed by: Bay Sargent MD 05/03/24 23:13 PM Head CTA 05/03/24 23:32 EXAM: CT angio head w con CLINICAL HISTORY: weak, cva on CTH TECHNIQUE: Contrast enhanced thin slice CT angiography scan of the cerebral vessels was performed with intravenous contrast. Angiographic images were processed, 3D MIP images were acquired for interpretation. Contiguous axial images were obtained. Reformatted coronal and sagittal images were also reviewed. If IV contrast material had not been administered, the likelihood of detecting abnormalities relevant to the patient's condition would have been substantially decreased. CT scan was performed according to ALARA (as low as reasonably achievable). COMPARISON: none FINDINGS: Bilateral internal carotid arteries show normal course, calibre and opacification in the canalicular and cavernous part. Their division into the anterior cerebral artery and middle cerebral artery is defined. A1, A2 and M1, M2 segments are normal on both the sides. Bilateral vertebral arteries are seen to unite the form the basilar artery in a normal fashion. Basilar artery shows normal course, caliber and opacification. Its division into the posterior cerebral arteries is defined. Bilateral P1 and P2 segments are normal. Visualized venous structures show normal opacification. No evidence of intracranial aneurysm or AV malformation is seen. IMPRESSION: 1.No evidence of stenosis or aneurysm. No evidence of dissection. Electronically signed by Jamison Hilton 05-04-2024 12:41 AM Neck CTA 05/03/24 23:32 EXAM: CT angio neck with con CLINICAL HISTORY: weak, cva on CTH TECHNIQUE: Contrast enhanced thin slice CT angiography scan of the carotid vessels was performed with intravenous contrast. Angiographic images were processed, 3D MIP images were acquired for interpretation.Contiguous axial images were obtained. Reformatted coronal and sagittal images were also reviewed. If IV contrast material had not been administered, the likelihood of detecting abnormalities relevant to the patient's condition would have been substantially decreased. CT scan was performed according to ALARA (as low as reasonably achievable). COMPARISON: none FINDINGS: Atherosclerotic wall calcification of bilateral carotid bulbs. No significant luminal narrowing. Included great vessels of the aortic arch are grossly unremarkable. Common carotid artery, carotid Bulb, internal carotid artery , and origin of the external carotid artery are well opacified. Vertebral arteries are well opacified. Jugular veins are well opacified. Included lung apices are grossly unremarkable. Thyroid gland appears unremarkable. IMPRESSION: 1. Atherosclerotic wall calcification of bilateral carotid bulbs. No significant luminal narrowing. 2. No evidence of significant stenosis or aneurysm. No evidence of dissection. Electronically signed by Jamison Hilton 05-04-2024 12:36 AM ECG Additional Comments: ECG normal sinus rhythm with sinus arrhythmia with rate of 68. QTc 418. Code Status & VTE Plan VTE Prophylaxis Plan VTE Prophylaxis will be ordered: Yes (1) Fall Encounter type: initial encounter Qualified Code(s): W19.XXXA - Unspecified fall, initial encounter
[2024-05-04] MEDS ORDERED: PHARMACIST DISCHARGE MED REC CONSULT PRN (02:38)
[2024-05-04] MEDS ORDERED: POLYETHYLENE (MIRALAX) 17 GM PACK PO PRN (02:38)
[2024-05-04] MEDS ORDERED: NITROGLYCERIN SL 0.4 MG/TAB TAB SL PRN (02:38)
[2024-05-04] MEDS ORDERED: ACETAMINOPHEN 325 MG TAB PO PRN (02:38)
[2024-05-04 05:11] LABS: Basophils # (auto) 0.01 K/uL (0.00-0.20); Basophils % (auto) 0.2 %; Eosinophils # (auto) 0.06 K/uL (0.00-0.50); Eosinophils % (auto) 1.3 %; Hematocrit (blood only) 38.4 % (37.0-47.0); Immature Granulocytes # (auto) 0.01 K/uL (0.01-0.20); Immature Granulocytes % (auto) 0.2 %; Lymphocytes # (auto) 1.01 K/uL (1.20-3.40); Lymphocytes % (auto) 21.6 %; Mean Corpuscular Hgb Conc 33.9 g/dL (32.0-36.0); Mean Corpuscular Volume 85.7 fL (80.0-100.0); Mean Platelet Volume 11.7 fL (9.4-12.4); Monocytes % (auto) 17.1 %; Neutrophils # (auto) 2.79 K/uL (1.40-6.50); Neutrophils % (auto) 59.6 %; Platelet Count 134 K/uL (130-400); RDW Coefficient of Variation 13.3 % (11.5-14.5); RDW Standard Deviation 41.8 fL (36.4-46.3); Red Blood Count 4.48 M/uL (4.20-5.40); White Blood Count 4.68 K/ul (4.8-10.8)
[2024-05-04 05:18] LABS: BUN Creatinine Ratio 28.6 (10-20); Calcium 8.2 mg/dl (8.6-10.3); Chol HDL Ratio 3.7 (0-5); Creatinine Clr Calc Pharmacy 48.7 ml/min; Potassium 3.9 mmol/L (3.5-5.1)
--- OUTSIDE RECORDS SUMMARY | 2024-05-04 05:44 | External Medical Summary | Summary of Care ---
Author Name Unknown Organization [facility] Address [address] [place] [address] Phone [phone] Care Team Providers Care Senior Cytotechnologist Name Role Phone Pia Altamirano PA-C Primary Care Provider [phone] Encounter Details Date Type Department Care Team (Late st Contact Info) Description 03/09/2024 Population Health External Data Unspecified Department Allergies Active Allergy Reactions Criticality Noted Date Comments Amoxicillin Abdominal pain 09/18/2015 Sulfa Antibiotics 06/29/2000 leg pain,headache documented as of this encounter (statuses as of 03/09/2024) Medications B COMPLEX 100 TR TBCR OR 0 1 Active CALCIUM CAPS 500 MG OR one cap by mouth daily 30 5 1 Active VITAMIN E CAPS 100 IU OR 0 1 Active OMEGA 3 1000 MG PO CAPS None Entered Active cholecalciferol , VIT D3, (VITAMIN D3) 1000 UNITS Tablet Pt takes 3 to 6 tablets daily--buys OTC 1 Tab 0 5 Active Loratadine 10 MG Oral Tablet (SM Loratadine)Ashley cations:Environ mental allergies Take by mouth 1 Tablet in the morning. 90 Tablet 3 2 Active Additional Information Patient not taking.Reported on 09/01/2023 Multi Vitamin Daily Oral Tablet Take by mouth. Activ e hydroCHLOROthia zide 12.5 MG Oral Capsule Take 1 Capsule by mouth in the morning. 30 Capsule 5 4 Active Debrox 6.5 % Otic Solution (Carbamide Peroxide) Administer 5 Drops into ears in the morning and 5 Drops before bedtime. Fill ear canal and insert cotton plug. Remove plug after 15 to 30 minutes.. 15 mL 1 4 Active documented as of this encounter (statuses as of 03/09/2024) Active Problems Problem Noted Date Diagnosed Date Environmental allergies 06/12/2021 documented as of this encounter (statuses as of 03/09/2024) Resolved Problems Problem Noted Date Diagnosed Date Resolved Date Reflux esophagitis 11/21/2019 0 Dyslipidemia, goal to be determined 11/21/2019 11/21/2019 Kidney disease, chronic, sta ge III (GFR 30-59 ml/min) 06/28/2018 11/21/2019 Overview: Per CKD protocol #1 Acquired hypothyroidism 06/12/2017 07/0 10/2023 CMV infection 06/12/2017 documented as of this encounter (statuses as of 03/09/2024) Immunizations No known immunizationsdocumented as of this encounter Social History Tobacco Use Types Packs/Day Years Used Date Smoking Tobacco: Never Smokeless Tobacco: Never Alcohol Use Standard Drinks/Week Comments No 0 (1 standard drink = 0.6 oz pur e alcohol) PHQ-2 Answer Date Recorded PHQ Adult Total Score 0 06/12/2021 Hunger Vital Sign Answer Date Recorded Worried About Running Out of Food in the Last Ye ar Never true 01/07/2019 Ran Out of Food in the Last Year Never true 01/07/2019 Comments No Sex and Gender Information Value Date Recorded Sex Assigned at Not on file Legal Sex Female 7:02 AM EST Gender Identity Not on file Sexual Orientation Not on file documented as of this encounter Plan of Treatment Health Maintenance Due Date Last Done Comments DXA Scan 1935 Pneumococcal Vaccine: 50+ Years (1 of 1 - PCV) 1984 Depression Screening 06/12/2022 06/12/2021 COVID-19 Vaccine (2023-2 5 season) 2023 Influenza Vaccine (FLU shot) (#1) 2023 Adult Wellness Visit 09/14/2024 09/15/2023 DTap/Tdap Vaccines (2 - Td o r Tdap) 11/20/2029 11/21/2019 (Declined) HPV (Gardasil) Vaccine Aged Out No lo nger eligible based on patient's age to complete this topic Hepatitis B Vaccine Aged Out No longe r eligible based on patient's age to complete this topic MENINGOCOCCAL (MENACTRA/MENVEO) Aged Out No longer eligible based on patient's age to complete this topic Zoster Vaccines Discontinued documented as of this encounter Medical Devices Not on filedocumented as of this encounter Care Teams Senior Cytotechnologist Relationship Specialty Start Date End Date Pia Altamirano PA-C [address] [place] [phone] PCP - General Physician Manager Federal 01/12/24 documented as of this encounter
--- OUTSIDE RECORDS SUMMARY | 2024-05-04 05:44 | External Medical Summary | Summary of Care ---
Author Name Unknown Organization [facility] Address [address] [place] [address] Phone [phone] Care Team Providers Care Division Chief Name Role Phone Pia Altamirano PA-C Primary Care Provider [phone] Reason for Visit * Reason Onset Date Comments Fax 02/29/2024 Encounter Details Date Type Department Care Team ([facility] Contact Info) Description 02/29/2024 Telephone Family Practice [facility] [address] [place] [address] Pia Altamirano PA-C [address] [place] [id number] Fax Allergies Active Allergy Reactions Criticality Noted Date Comments Amoxicillin Abdominal pain 09/18/2015 Sulfa Antibiotics 06/29/2000 leg pain,headache documented as of this encounter (statuses as of 03/03/2024) Medications B COMPLEX 100 TR TBCR OR 0 1 Active CALCIUM CAPS 500 MG OR one cap by mouth daily 30 5 1 Active VITAMIN E CAPS 100 IU OR 0 1 Active OMEGA 3 1000 MG PO CAPS None Entered Active cholecalciferol , VIT D3, (VITAMIN D3) 1000 UNITS Tablet Pt takes 3 to 6 tablets daily--buys OTC 1 Tab 0 11/17/201 5 Active Loratadine 10 MG Oral Tablet [...] as of this encounter (statuses as of 03/03/2024) Active Problems Problem Noted Date Diagnosed Date Environmental allergies 06/12/2021 documented as of this encounter (statuses as of 03/03/2024) Resolved Problems Problem Noted Date Diagnosed Date Resolved Date Reflux esophagitis 11/21/2019 0 Dyslipidemia, goal to be determined 11/21/2019 11/21/2019 Kidney disease, chronic, sta ge III (GFR 30-59 ml/min) 06/28/2018 11/21/2019 Overview: Per CKD protocol #1 Acquired hypothyroidism 06/12/2017 07/0 10/2023 CMV infection 06/12/2017 documented as of this encounter (statuses as of 03/03/2024) Immunizations No known immunizationsdocumented as of this [...] on file documented as of this encounter Miscellaneous Notes * Telephone Encounter - Brittany Hardwick LPN - 03/03/2024 11:12 AM EST Meds, immunizations, and dx list faxed to number given below. * Telephone Encounter - Jenny Grijalva OSA - 02/29/2024 2:24 PM EST Caller requesting the following information to be faxed: Name/Company of caller: [facility] Information requested to be faxed: list of pt's diagnoses, immunizations and mediations, if any. Fax number: [phone] Attention to Name/Company: [facility] Any additional information?: Pt has been admitted to the personal custodial today 02/29/2024. documented in this encounter Plan of Treatment Health Maintenance Due Date Last Done Comments DXA Scan 1935 Pneumococcal Vaccine: 50+ Years (1 of 1 - PCV) 1984 Depression Screening 06/12/2022 06/12/2021 COVID-19 Vaccine ( - 2023-2 5 season) 2023 Influenza Vaccine (FLU shot) [...] filedocumented as of this encounter Care Teams Division Chief Relationship Specialty Start Date End Date Pia Altamirano PA-C [address] [place] [id number] PCP - General Physician Veneer Manufacturer 01/12/24 documented as of this encounter
[2024-05-04 08:38] LABS: Troponin I High Sensitivity 8.5 pg/ml (0-14)
[2024-05-04] MEDS: CHOLECALCIFEROL 25 MCG (1000 UNITS) TAB PO SCH (08:49)
[2024-05-04] MEDS: ATORVASTATIN 20 MG TAB PO SCH (08:49)
[2024-05-04] MEDS: ASCORBIC ACID 500 MG TAB PO SCH (08:49)
[2024-05-04] MEDS: ASPIRIN 81 MG ECTAB PO SCH (08:49)
--- NOTE | 2024-05-04 10:21 | Magnetic Resonance Report ---
MRI OF THE BRAIN WITHOUT CONTRAST CLINICAL HISTORY: cva on ct scan COMPARISON STUDY: Head CT and CTA of the head May 03, 2024. TECHNIQUE: Utilizing a 3 Danni magnet and dedicated coil, multiplanar, multiecho imaging of the brain was performed without IV contrast. FINDINGS: There are no foci of restricted diffusion to suggest acute infarct. No acute intracranial h emorrhage, midline shift or mass effect is present. Ventricular dilatation is due to atrophy. Basal c isterns are patent. There are no extra axial collections. A small focus of encephalomalacia within th e left parietooccipital region corresponds to the finding on head CT of May 03, 2024. This represen ts an old infarct. White matter T2 hyperintense foci represent small vessel disease. Calvarial signal is normal. No intracranial masses are identified on unenhanced exam. IMPRESSION: 1. No acute intracranial findings. 2. Small focus of encephalomalacia consistent with old infarct within the left parietooccipital regio n which corresponds to the finding on head CT of May 03, 2024. 3. Moderate atrophy and small vessel disease. ACT 112: Negative or not required by law. Electronically signed by: Thaddeus Berman M.D. 05/04/2024 10:18 AM
--- NOTE | 2024-05-04 10:30 | Hospitalist Progress Note ---
Date of Service May 04, 2024 Assessment & Plan (1) Fall: Plan: 88-year-old female with no significant past medical history currently living at [facility] was brought in because For a fall. As as per the report, patient may have slipped and fell in the shower. Mechanical Fall CVA ruled out Patient presented to the hospital with mechanical fall. CT of the head showed subtle wedge-shaped hypodense area involving the left p arietal occipital region with loss of miller-white matter. CT headno acute finding Brain MRI did not show any acute intracranial finding. Small focus of encephalomalacia consistent with old stroke within left parietal occipital region. Echocardiogram shows EF of 55 to 60%; borderline concentric LVH. Started on aspirin, Lipitor. 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 Appreciate case man agement input. DVT prophylaxis heparin Full code Please note the above document was generated using voice recognition software. It may contain grammatical, syntax or spelling errors. Any formal questions or concerns about the content, text or information contained within the body of this dictation should be directly addressed to the provider for clarification Admission and Anticipated Discharge Date Admission Date: May 04, 2024 Subjective Patient seen and examined at bedside. She is comfortable; not in distress Vital signs are stable and she is saturating well on room air. Review of Systems 2 Review of Systems: All systems reviewed & are unremarkable except as noted in Subjective Physical Exam Physical Exam: General-Not in distress. Head- atraumatic Eyes- PERRL, EOMI. ENT- oropharynx clear Neck- supple, no JVD. Lungs- clear to auscultation no wheezing or crackles Heart- regular rate and rhythm; no murmur, no gallop. Abdomen- normal bowel sounds, soft, nontender, no distension. Extremities- no pretibial edema, no erythema seen. Neuro- alert, and awake. Very hard of hearing. PERRL, EOMI; no facial palsy; no dysarthria; Grossly moves all extremities. Results & Data Results & Data Vital Signs (Past 12 Hours) Vital Signs Pulse Pulse Resp BP BP Pulse Ox O2 Del Method 05/04/24 09:00 66 13 98 05/04/24 08:06 65 14 97 05/04/24 08:02 167/94 H 05/04/24 07:05 84 05/04/24 06:18 60 19 145/83 H 93 Room Air 05/04/24 04:00 66 19 121/75 96 Room Air 05/04/24 01:30 66 16 138/85 98 Room Air 05/04/24 01:00 60 14 129/75 95 Room Air 05/04/24 00:40 57 L 05/03/24 23:36 64 15 155/98 H 97 Room Air 05/03/24 23:06 64 16 153/97 H 97 Room Air 05/03/24 22:30 67 15 157/83 H 97 Room Air (1) Fall Encounter type: initial encounter Qualified Code(s): W19.XXXA - Unspecified fall, initial encounter
--- NOTE | 2024-05-04 10:50 | Neurology Consultation ---
Date of Consultation May 04, 2024 Assessment & Plan (1) Fall: 88 yo woman care home facility resident who presented for frequent falls. MRI now revealing only chronic stroke. Her falls were not caused by this stroke, may relate to underlying dementia as some was reported by family. Recommend continued treating of any underlying medical conditions, PT/OT and follow-up with neurology cognitive clinic outpatient. -- Can check vits B12, B1, D3 -- PT/OT -- ASA 81 mg for old stroke, would recommend consideration of zio patch. TTE unremarkable -- Pt should follow-up with neurology cognitive clinic outpatient. Telehealth Consultation Telehealth Information Telehealth Information: I performed this visit using a real-time telehealth connection between my location and the patients location ([facility]). After connecting through interactive tele-video, patient was identified by name and date of and/or wristband check.Patient (or authorized healthcare branch service representative) was informed that this was a telemedicine visit and it was being conducted confidentially over secure lines. My office door was closed and no one else was present in the room with me.Patient (or authorized healthcare branch service representative) provided consent to proceed with the visit, expressed an understanding of privacy and security of the telemedicine visit, and gave permission to have a hospital branch service representative in the room in order to assist with the visit and to conduct portions of the visit, as needed. I informed the patient (or authorized healthcare branch service representative) that I reviewed their record and presented the opportunity for them to ask any questions regarding the visit today. The patient agreed to participate. History of Present Illness Reason for Consultation: frequent falls, chronic stroke Attending Physician: Daron Alcazar MD History of Present Illness Per Medicine H&P: "88-year-old female with no significant past medical history currently living at personal-alf was brought in because of falls. Patient seem to slipped from the bed last night. Today around 7 PM she fell in the shower and was brought to the hospital. CT scan showed subtle wedge-shaped hypodense area involving the left parieto-occipital region and evolving ischemic process not excluded. CTA head and neck no acute findings. Patient is very hard of hearing. Daughter and son-in-law are in the room who helped with H&P. Family says patient is very hard of hearing and also has some difficulty understanding. They are not sure whether she has dementia. Today seems she also complained neck and jaw pain and took some aspirin. Seems patient was ambulating in the car with the family to come here. Patient denies any headache. No runny nose or sore throat or cough. Denies chest pain. No difficulty swallowing. No shortness of breath. No abdominal pain. She is on depends because she micturates a lot. Normal bowel movements. Hemodynamics are okay. As per previous [facility] notes patient was on hydrochlorothiazide but currently seems no longer on it." Upon my exam pt is sleepy but does wake up with prodding, states she is starting to feel better. Allergies Allergy/AdvReac Type Severity Reaction Status Date / Time amoxicillin Allergy Unknown ON [place] Verified 05/03/24 20:54 [place] LIST Sulfa (Sulfonamide Allergy Unknown ON [place] Verified 05/03/24 20:54 Antibiotics) PAT[facility] We[facility] Home Medications Medication Instructions Recorded Confirmed Type acetaminophen 325 mg tablet 650 mg PO Q4H PRN PAIN/FEVER 05/03/24 05/03/24 History (Tylenol) ascorbic acid (vitamin C) 500 mg 500 mg PO DAILY 05/03/24 05/03/24 History tablet (Vitamin C) aspirin 325 mg tablet 650 mg PO Q6H PRN Pain 05/03/24 05/03/24 History cholecalciferol (vitamin D3) 50 50 mcg PO DAILY 05/03/24 05/03/24 History mcg (2,000 unit) capsule (Vitamin D3) guaifenesin 600 mg tablet, 600 - 1,200 mg PO Q12H PRN 05/03/24 05/03/24 History extended release 12 hr (Mucinex) Congestion herbal drugs 2 tab PO BID 05/03/24 05/03/24 History multivitamin 3 tab PO BID 05/03/24 05/03/24 History nystatin 100,000 unit/gram topical 1 applic topical QID PRN NEEDED 05/03/24 05/03/24 History powder Patient History Social History Smoking Status: Unknown if ever smoked Hx Alcohol Use: No Hx Substance Use: No Preferred Language: Portuguese Communication Ability: Effective 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: No Current Living Situation: Personal Care Facility Feels Safe at Home: Yes Assistive Devices: Walker Physical Exam Limited over camera Pt with symmetric appearing face, intact gaze, no facial droop Able to move all four extrmeties very sleepy but does state she is fine, otherwise minmially participatory Results & Data Vital Signs (Past 12 Hours) Vital Signs Pulse Pulse Resp BP BP Pulse Ox O2 Del Method 05/04/24 10:00 184/91 H 05/04/24 09:20 172/76 H 05/04/24 09:18 62 16 97 05/04/24 09:00 66 13 98 05/04/24 08:06 65 14 97 05/04/24 08:02 167/94 H 05/04/24 07:05 84 05/04/24 06:18 60 19 145/83 H 93 Room Air 05/04/24 04:00 66 19 121/75 96 Room Air 05/04/24 01:30 66 16 138/85 98 Room Air 05/04/24 01:00 60 14 129/75 95 Room Air 05/04/24 00:40 57 L 05/03/24 23:36 64 15 155/98 H 97 Room Air 05/03/24 23:06 64 16 153/97 H 97 Room Air Laboratory Results Per chart Diagnostic Findings MRI Brain 05/04/24: negative for acute stroke, chronic L parietal stroke TTE: normal EF (1) Fall Encounter type: initial encounter Qualified Code(s): W19.XXXA - Unspecified fall, initial encounter
[2024-05-04 11:27] LABS: Estimated Average Glucose 111 mg/dl; Hemoglobin A1C 5.5 % (4.5-5.6)
--- NOTE | 2024-05-04 11:33 | Electrocardiogram Report ---
Test Reason : Blood Pressure : */* mmHG Vent. Rate : 68 BPM Atrial Rate : 68 BPM P-R Int : 152 ms QRS Dur : 86 ms QT Int : 394 ms P-R-T Axes : 50 -8 -19 degrees QTcB Int : 418 ms Normal sinus rhythm with sinus arrhythmia possible Inferior infarct , age undetermined Cannot rule out Anterior infarct , age undetermined Abnormal ECG No previous ECGs available Confirmed by Alonso Batres ([id number]) on 05/04/2024 11:33:48 AM Referred By: [facility] Confirmed By: Alonso Batres
[2024-05-04] MEDS: HEPARIN SOD 5,000 UNIT/0.5 ML VIAL SQ SCH (13:42)
[2024-05-05] MEDS ORDERED: HALOPERIDOL LACTATE 5 MG/ML 1 ML VIAL IM PRN (00:16)
[2024-05-05 02:53] VITALS: RESP 18
[2024-05-05] MEDS: HALOPERIDOL LACTATE 5 MG/ML 1 ML VIAL IM STA (06:29)
[2024-05-05 07:38] LABS: Basophils # (auto) 0.02 K/uL (0.00-0.20); Basophils % (auto) 0.3 %; Eosinophils # (auto) 0.18 K/uL (0.00-0.50); Eosinophils % (auto) 3.1 %; Hematocrit (blood only) 44.2 % (37.0-47.0); Hemoglobin 14.8 g/dl (12.0-16.0); Immature Granulocytes # (auto) 0.03 K/uL (0.01-0.20); Immature Granulocytes % (auto) 0.5 %; Lymphocytes # (auto) 1.56 K/uL (1.20-3.40); Lymphocytes % (auto) 27.1 %; Mean Corpuscular Hemoglobin 29.1 pg (25.0-34.0); Mean Corpuscular Hgb Conc 33.5 g/dL (32.0-36.0); Mean Corpuscular Volume 86.8 fL (80.0-100.0); Mean Platelet Volume 11.8 fL (9.4-12.4); Monocytes # (auto) 0.67 K/uL (0.11-0.59); Monocytes % (auto) 11.6 %; Neutrophils % (auto) 57.4 %; Platelet Count 152 K/uL (130-400); RDW Coefficient of Variation 13.1 % (11.5-14.5); RDW Standard Deviation 41.3 fL (36.4-46.3); Red Blood Count 5.09 M/uL (4.20-5.40); White Blood Count 5.76 K/ul (4.8-10.8)
[2024-05-05 08:17] VITALS: O2SAT 96
--- NOTE | 2024-05-05 10:25 | Pharmacy Report ---
- Date of Service May 05, 2024 - Pharmacy CVA/TIA Medication Review Medications to Prevent Stroke handout has been added to the patients discharge packet. Antiplatelet(s) * Aspirin 81 mg PO daily Cholesterol * High intensity statin deferred due to age >75 * Ordered Atorvastatin 20 mg PO daily DVT Prophylaxis * Heparin SQ Therapeutic Anticoagulation * No history of Afib/Aflutter noted Type 2 Diabetes * Patient does not have T2DM
[2024-05-05 11:41] LABS: BUN Creatinine Ratio 27.2 (10-20); Calcium 8.4 mg/dl (8.6-10.3); Creatinine Clr Calc Pharmacy 40.7 ml/min; Potassium 4.3 mmol/L (3.5-5.1)
[2024-05-05 11:47] LABS: Troponin I High Sensitivity 3.3 pg/ml (0-14)
[2024-05-05 11:56] VITALS: BP 150/85; PULSE 74; TEMP 98.2
[2024-05-05] MEDS ORDERED: STROKE PATIENT DISCHARGE STA (12:28)
--- NOTE | 2024-05-05 12:31 | Discharge Summary ---
Date of Service May 05, 2024 Admission HPI Per Admitting Provider 88-year-old female with no significant past medical history currently living at [facility] was brought in because of falls. Patient seem to slipped from the bed last night. Today around 7 PM she fell in the shower and was brought to the hospital. CT scan showed subtle wedge-shaped hypodense area involving the left parieto-occipital region and evolving ischemic process not excluded. CTA head and neck no acute findings. Patient is very hard of hearing. Daughter and son-in-law are in the room who helped with H&P. Family says patient is very hard of hearing and also has some difficulty understanding. They are not sure whether she has dementia. Today seems she also complained neck and jaw pain and took some aspirin. Seems patient was ambulating in the car with the family to come here. Patient denies any headache. No runny nose or sore throat or cough. Denies chest pain. No difficulty swallowing. No shortness of breath. No abdominal pain. She is on depends because she micturates a lot. Normal bowel movements. Hemodynamics are okay. As per previous epic notes patient was on hydrochlorothiazide but currently seems no longer on it. Past medical history. As mentioned above. Past surgical history. Dilatation curettage. Tonsillectomy. Social history. No smoking. No alcohol. No drug use as per records. Family history. Mother had Parkinson's per records. Father had diabetes and COPD per records. Admission Exam Per Admitting Provider General-Not in distress. Head- atraumatic Eyes- PERRL, EOMI. ENT- oropharynx clear Neck- supple, no JVD. Lungs- clear to auscultation no wheezing or crackles Heart- regular rate and rhythm; no murmur, no gallop. Abdomen- normal bowel sounds, soft, nontender, no distension. Extremities- no pretibial edema, no erythema seen. Neuro- alert, and awake. Very hard of hearing. PERRL, EOMI; no facial palsy; no dysarthria; motor 3-4/5 bilaterally; co ordination of movements ok. Somewhat difficult to make her understand to perform neuro exam Principal Diagnosis Fall Ruled out acute stroke Discharge Exam General-Not in distress. Head- atraumatic Eyes- PERRL, EOMI. ENT- oropharynx clear Neck- supple, no JVD. Lungs- clear to auscultation no wheezing or crackles Heart- regular rate and rhythm; no murmur, no gallop. Abdomen- normal bowel sounds, soft, nontender, no distension. Extremities- no pretibial edema, no erythema seen. Neuro- alert, and awake. Very hard of hearing. PERRL, EOMI; no facial palsy; no dysarthria; Grossly moves all extremities. Discharge Data Allergies Allergy/AdvReac Type Severity Reaction Status Date / Time amoxicillin Allergy Unknown ON [place] Verified 05/03/24 20:54 [facility] LIST Sulfa (Sulfonamide Allergy Unknown ON [place] Verified 05/03/24 20:54 Antibiotics) [facility] LIST Consultations 05/03/24 23:30 ED Decision to Admit Stat 05/04/24 08:00 Consult Neurology Routine Ordered Studies 05/03/24 20:34 CT cervical spine wo con Stat CT head/brain wo con Stat 05/03/24 23:32 CT angio head w con Stat CT angio neck with con Stat 05/04/24 02:38 MR brain wo con Urgent Hospital Course (1) Fall: Per prior attending w/ addendum: 88-year-old female with no significant past medical history currently living at [facility]ention was brought in because For a fall. As as per the report, patient may have slipped and fell in the shower. Mechanical Fall CVA ruled out Patient presented to the hospital with mechanical fall. CT of the head showed subtle wedge-shaped hypodense area involving the left parietal occipital region with loss of miller-white matter. CT headno acute finding Brain MRI did not show any acute intracranial finding. Small focus of encephalomalacia consistent with old stroke within left parietal occipital region. Echocardiogram shows EF of 55 to 60%; borderline concentric LVH. Started on aspirin, Lipitor. 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 Appreciate case management input. DVT prophylaxis heparin Full code Addendum: Patient was seen and examined at bedside as a follow-up of fall and brain imagings reviewed. Acute stroke ruled out. Patient hemodynamically stable and denies any new complaints. Patient's son Andrew was given a phone call and updated on plan of care and coordinated following discharge instructions. Patient is being discharged with following instructions at the point of discharge: Follow-up with your primary care physician within a week time and likely you will need labs CBC/CMP/magnesium/phosphorus. Continue with physical therapy upon discharge. You were noted to have old stroke on head imaging while in hospital, hence you are started on baby aspirin and a small dose of Lipitor on discharge. You will benefit from Zio patch monitoring as an outpatient, coordinate with your PCP office to set up the test. You will benefit from following up with neurology cognitive clinic as an outpatient, coordinate with your PCP office to set up the referral. Take your medications as prescribed. Please make sure that you are able to get your medications today by calling your pharmacy before you leave the hospital so that your treatment continuity is not broken. Please note the above document was generated using voice recognition software. It may contain grammatical, syntax or spelling errors. Any formal questions or concerns about the content, text or information contained within the body of this dictation should be directly addressed to the provider for clarification Home Health Attestation I certify that this patient is under my care and that I, or a physicians guest services assistant working with me, had a face to-face encounter that meets the home health [id number] encounter requirements with this patient. The encounter with the patient was in whole, or in part, for the following medical condition, which is the primary reason for home health care (list medical condition): I certify that, based on my findings, the following services are medically necessary home health services: My clinical findings support the need for the above services because: Further, I certify that my clinical findings support that this patient is homebound (i.e. absences from home require considerable and taxing effort and are for medical reasons or church services or infrequently or of short duration when for other reasons) because: Certification for Home Health Services: Based on the above findings, I certify that this patient is confined to the home and needs intermittent assisted care, physical therapy and/or speech therapy or continues to need occupational therapy. The patient is under my care, and I have initiated the establishment of the plan of care. This patient will be followed by a physician who will periodically review the plan of care. Total Time Total Time Spent Total Time Spent (In Minutes): 35 Discharge Plan Discharge Items Patient Disposition: Home - Home Health Services Reason For Visit: FALL, CVA? Discharge Diagnosis: Fall Ruled out acute stroke Activity: As commented below Activity Comment: continue w/ physical therapy on discharge Non-emergency contact: Primary Care Provider Call non-emergency contact if: you have any medication questions Follow-up/Referrals: KAYE Perdomo [Primary Care Provider] - Diet: Heart Healthy Addtl Attending Provider Instructions: Follow-up with your primary care physician within a week time and likely you will need labs CBC/CMP/magnesium/phosphorus. Continue with physical therapy upon discharge. You were noted to have old stroke on head imaging while in hospital, hence you are started on baby aspirin and a small dose of Lipitor on discharge. You will benefit from Zio patch monitoring as an outpatient, coordinate with your PCP office to set up the test. You will benefit from following up with neurology cognitive clinic as an outpatient, coordinate with your PCP office to set up the referral. Take your medications as prescribed. Please make sure that you are able to get your medications today by calling your pharmacy before you leave the hospital so that your treatment continuity is not broken. Pending Studies at Discharge: No Stand-Alone Forms: My [facility] Jalbum, Smoking Cessation, Medications to Prevent Stroke Medications and DC Order Prescriptions: New atorvastatin 20 mg Tablet 20 mg PO QAM Qty: 30 0RF aspirin 81 mg Tablet,Delayed Release (Dr/Ec) 81 mg PO QAM Qty: 30 0RF Continued multivitamin Tablet 3 tab PO BID acetaminophen [Tylenol] 325 mg Tablet 650 mg PO Q4H PRN (Reason: PAIN/FEVER) ascorbic acid (vitamin C) [Vitamin C] 500 mg Tablet 500 mg PO DAILY nystatin 100,000 unit/gram Powder 1 applic TOPICAL QID PRN (Reason: NEEDED) Herbal Laxative Tablet 2 tab PO BID cholecalciferol (vitamin D3) [Vitamin D3] 50 mcg (2,000 unit) Capsule 50 mcg PO DAILY guaifenesin [Mucinex] 600 mg Tablet Extended Release 12hr 600 - 1,200 mg PO Q12H PRN (Reason: Congestion) Discontinued aspirin 325 mg Tablet 650 mg PO Q6H MDD 12 TABLETS/24 HOURS PRN (Reason: Pain) Discharge Orders: Discharge Order (Routine); Ordered 05/05/24 Ordered By: David Holbrook Admission Data Admit Date/Time: 05/04/24 02:06 Attending Provider: David Holbrook Admit Provider: Daniel Pang [facility] Other Providers: Daniel Pang; Celena Garcia; Shemar Guerra; Celena Mathias; Jeff Head; Braden Cohen; Chito Victoria; Mahesh Sotelo; Myla Oconnor; Vicente Carmona; Topher Dobbins; Chidi Ibanez; Jon Fernandez; Isidra Dias; Beba Mueller; Ceasar Cuevas; Sejal Grijalva
--- NOTE | 2024-05-08 14:20 | Coding Query ---
CODING QUERY To promote full compliance with coding requirements relating to patient care, provider participation is requested in all cases of account manager forest service uncertainty. Please assist us with the question(s) below: Coding Question(s): 88 yo woman senior living facility resident who presented for frequent falls. MRI now revealing only chronic stroke. Her falls were not caused by this stroke, may relate to underlying dementia as some was reported by family. Recommend continued treating of any underlying medical conditions, PT/OT and follow-up with neurology cognitive clinic outpatient. Physician's Response(s): __x__ repeated falls due to dementia ____ Unable to determine ____ Other( please specify ) Thank you Radha MCLAUGHLIN
== END 2024-05-05 13:18 | disposition home health service (06) | DRG 884 ==
LOC: ED 20:09 → SUATTDRO 05-04 02:06 → EDINP 05-04 02:06 → 2E 05-04 02:39